=== PATIENT | male | born 1935 | race Caucasian/White ===

== ENCOUNTER 2022-02-25 10:10 | Outpatient (CLI) | payer MEDICARE | END 2022-02-25 10:11 | disposition home or self-care (01) | LOC: CSHULT 10:10 | PROVIDERS: ATTEND Family Medicine | DX: I73.9 Peripheral vascular disease, unspecified (principal) | CPT/HCPCS: 93923 ==

== ENCOUNTER 2025-02-06 10:41 | Inpatient (IN) | payer MEDICARE ==
[2025-02-06 11:24] LABS: Actual Bicarbonate (HCO3v) 18.9 mEq/L (22-28); Analyzer IN Cardio CS ER; Base Excess -4.7 mEq/L (-2 - +2); Calcium, Ionized (venous) 1.14 mmol/L (1.16-1.32); Chloride (VBG) 101 mmol/L (98-106); Critical Notified Whom: cocjef; Hematocrit-VBG 37 % (42.0-52.0); Hemoglobin (Hb) 12.6 g/dL (12.6-17.4); Potassium (VBG) 4.37 mmol/L (3.70-5.30); Puncture Site Other Site; RapidComm Collect By lab; Sodium 136 mmol/L (133-146)
[2025-02-06 11:26] LABS: #Basophils 0.04 10x3/uL (0.0-0.2); #Eosinophils 0.26 10x3/uL (0.0-0.5); #Monocytes 0.61 10x3/uL (0.0-1.1); #Neutrophils 4.76 10x3/uL (1.5-8.4); %Basophils 0.5 % (0.0-2.0); %Eosinophils 3.5 % (0.0-6.0); %Lymphocytes 23.7 % (18.0-47.0); %Monocytes 8.2 % (0.0-10.0); %Neutrophils 63.6 % (40.0-75.0); Hematocrit 35.7 % (38.8-50.0); Hemoglobin 11.4 g/dL (13.5-17.5); Mean Corpuscular Hemoglobin 28.1 pg (27.0-33.0); Mean Corpuscular Volume 87.9 fL (81.2-95.1); Platelet Count 388 10x3/uL (150-450); Red Blood Cell (RBC) Count 4.06 10x6/uL (4.32-5.72); White Blood Cell (WBC) Count 7.48 10x3/uL (3.5-10.5)
[2025-02-06 11:45] LABS: ALT (SGPT) 9 U/L (Less than 45); AST (SGOT) 12 U/L (11-34); Albumin 3.1 g/dL (3.1-4.5); Alkaline Phosphatase 93 U/L (40-110); Anion Gap 20 mmol/L (10-20); BUN (Urea Nitrogen) 34 mg/dL (8.4-25.7); Bilirubin, Total 0.4 mg/dL (0.3-1.2); Calc. Creatinine Clearance 0 mL/min (70-130); Calcium 8.7 mg/dL (7.8-10.44); Carbon Dioxide 16 mmol/L (23-31); Chloride 105 mmol/L (98-107); Globulin 3.1 g/dL (2.4-3.5); Lipase 74 U/L (8-78); Magnesium 2.1 mg/dL (1.6-2.6); Potassium 4.7 mmol/L (3.5-5.1); Sodium 136 mmol/L (136-145)
[2025-02-06 11:48] LABS: Glucose 507 mg/dL (83-110); Troponin I 0.097 ng/mL (< 0.028)
[2025-02-06] MEDS ORDERED: Cefepime 2 GM VIAL ONE (12:15)
[2025-02-06 13:04] LABS: Glucose, Urine (Dipstick) >=1000 mg/dL (Negative); Leukocyte 500 (Negative); Protein, Urine (Dipstick) 30 mg/dl (Neg-Trace); Specific Gravity, Urine 1.005 (1.005-1.030)
[2025-02-06] MEDS ORDERED: Dextrose 50% Abboject 50 ML SYRINGE SLOW IVP PRN (13:16)
[2025-02-06] MEDS ORDERED: Glucagon 1 MG/ML KIT IM PRN (13:16)
[2025-02-06] MEDS ORDERED: Acetaminophen 325 MG TAB PO PRN (13:16)
[2025-02-06 13:25] LABS: CAUTI Indications for Culture Alt mental st,lethar; WBC/HPF 21-50 HPF (0-3)
[2025-02-06 13:26] LABS: Bacteria/HPF 1+ HPF (None Seen)
[2025-02-06 13:27] LABS: Urine Culture Reflex Yes Yes
[2025-02-06] MEDS ORDERED: Ketorolac Tromethamine 30 MG (1 mL) VIAL IVP PRN (13:43)
[2025-02-06 14:37] LABS: Glucose 318 mg/dL (83-110)
[2025-02-06 14:46] LABS: Troponin I 0.082 ng/mL (< 0.028)
[2025-02-06 16:13] LABS: Troponin I 0.095 ng/mL (< 0.028)
[2025-02-06 21:43] VITALS: BMI 26.1
[2025-02-06] MEDS: cefTRIAXone\\ROCEPHIN 2 GM in Sodium Chloride 0.9% 100 ML IVPB SCH (22:01)
[2025-02-06] MEDS: Famotidine/PF 20 mg/2ml Vial SLOW IVP SCH (22:16)
[2025-02-06] MEDS: Famotidine 20 MG TAB PO SCH (22:16)
[2025-02-07 06:02] LABS: #Basophils 0.04 10x3/uL (0.0-0.2); #Eosinophils 0.33 10x3/uL (0.0-0.5); #Monocytes 0.62 10x3/uL (0.0-1.1); #Neutrophils 5.03 10x3/uL (1.5-8.4); %Basophils 0.5 % (0.0-2.0); %Eosinophils 4.3 % (0.0-6.0); %Lymphocytes 21.5 % (18.0-47.0); %Monocytes 8.0 % (0.0-10.0); %Neutrophils 64.9 % (40.0-75.0); Hematocrit 35.7 % (38.8-50.0); Hemoglobin 11.1 g/dL (13.5-17.5); Mean Corpuscular Hemoglobin 27.6 pg (27.0-33.0); Mean Corpuscular Volume 88.8 fL (81.2-95.1); Platelet Count 366 10x3/uL (150-450); Red Blood Cell (RBC) Count 4.02 10x6/uL (4.32-5.72); White Blood Cell (WBC) Count 7.75 10x3/uL (3.5-10.5)
[2025-02-07 06:17] LABS: Anion Gap 12 mmol/L (10-20); BUN (Urea Nitrogen) 29 mg/dL (8.4-25.7); Calc. Creatinine Clearance 32 mL/min (70-130); Calcium 8.6 mg/dL (7.8-10.44); Carbon Dioxide 22 mmol/L (23-31); Chloride 115 mmol/L (98-107); Glucose 171 mg/dL (83-110); Potassium 4.0 mmol/L (3.5-5.1); Sodium 145 mmol/L (136-145)
[2025-02-07] MEDS: Aspirin Chewable 81 MG TAB PO SCH (08:55)
[2025-02-07] MEDS: Finasteride 5 MG TAB PO SCH (08:56)
[2025-02-07] MEDS: Enoxaparin 30 MG (0.3 mL) SYRINGE SC SCH (08:56)
[2025-02-07] MEDS: Famotidine 20 MG TAB PO SCH (20:28)
[2025-02-07] MEDS: Melatonin 3 MG TAB PO PRN (20:28)
[2025-02-08 08:00] LABS: #Basophils 0.04 10x3/uL (0.0-0.2); #Eosinophils 0.42 10x3/uL (0.0-0.5); #Monocytes 0.60 10x3/uL (0.0-1.1); #Neutrophils 4.66 10x3/uL (1.5-8.4); %Basophils 0.5 % (0.0-2.0); %Eosinophils 5.6 % (0.0-6.0); %Lymphocytes 23.8 % (18.0-47.0); %Monocytes 7.9 % (0.0-10.0); %Neutrophils 61.7 % (40.0-75.0); Hematocrit 35.6 % (38.8-50.0); Hemoglobin 11.0 g/dL (13.5-17.5); Mean Corpuscular Hemoglobin 27.9 pg (27.0-33.0); Mean Corpuscular Volume 90.4 fL (81.2-95.1); Platelet Count 347 10x3/uL (150-450); Red Blood Cell (RBC) Count 3.94 10x6/uL (4.32-5.72); White Blood Cell (WBC) Count 7.56 10x3/uL (3.5-10.5)
[2025-02-08 08:46] LABS: Albumin 2.7 g/dL (3.1-4.5); Anion Gap 10 mmol/L (10-20); BUN (Urea Nitrogen) 24 mg/dL (8.4-25.7); BUN/Creatinine Ratio 15.89; Calc. Creatinine Clearance 32 mL/min (70-130); Calcium 8.6 mg/dL (7.8-10.44); Carbon Dioxide 20 mmol/L (23-31); Chloride 119 mmol/L (98-107); Glucose 185 mg/dL (83-110); Potassium 4.2 mmol/L (3.5-5.1); Sodium 145 mmol/L (136-145)
[2025-02-08 12:49] VITALS: BP 145/74; TEMP 98.1
== END 2025-02-08 13:34 | disposition home or self-care (01) | DRG 637 ==
LOC: CSHERS 10:42 → CSHERHOLD 13:09 → CSHTELE 21:34
PROVIDERS: ADMIT Student in an Organized Health Care Education/Training Program; ATTEND Student in an Organized Health Care Education/Training Program
DX: E11.65 Type 2 diabetes mellitus with hyperglycemia (principal); A41.9 Sepsis, unspecified organism; N17.9 Acute kidney failure, unspecified; N39.0 Urinary tract infection, site not specified; I10 Essential (primary) hypertension; E78.5 Hyperlipidemia, unspecified; N40.0 Benign prostatic hyperplasia without lower urinary tract symptoms; Z79.899 Other long term (current) drug therapy; Z79.4 Long term (current) use of insulin; Z79.84 Long term (current) use of oral hypoglycemic drugs; Z95.0 Presence of cardiac pacemaker
CPT/HCPCS: 36415; 36416; 71045; 80048; 80053; 80069; 81001; 82010; 82805; 83036; 83605; 83690; 83735; 84100; 84443; 84484; 85025; 87040; 87077; 87086; 93005; 94760; 96374; J0692; J0696; J1650; J1815; J7030

== ENCOUNTER 2025-02-08 18:07 | Emergency (ER) | payer MEDICARE ==
[2025-02-08 18:59] LABS: #Basophils Less than 0.03 10x3/uL (0.0-0.2); #Eosinophils 0.31 10x3/uL (0.0-0.5); #Monocytes 0.62 10x3/uL (0.0-1.1); #Neutrophils 5.36 10x3/uL (1.5-8.4); %Basophils 0.3 % (0.0-2.0); %Eosinophils 4.1 % (0.0-6.0); %Lymphocytes 16.5 % (18.0-47.0); %Monocytes 8.1 % (0.0-10.0); %Neutrophils 70.2 % (40.0-75.0); Hematocrit 34.8 % (38.8-50.0); Hemoglobin 11.0 g/dL (13.5-17.5); Mean Corpuscular Hemoglobin 28.6 pg (27.0-33.0); Mean Corpuscular Volume 90.4 fL (81.2-95.1); Platelet Count 348 10x3/uL (150-450); Red Blood Cell (RBC) Count 3.85 10x6/uL (4.32-5.72); White Blood Cell (WBC) Count 7.63 10x3/uL (3.5-10.5)
[2025-02-08 19:14] LABS: ALT (SGPT) 8 U/L (Less than 45); AST (SGOT) 16 U/L (11-34); Albumin 3.0 g/dL (3.1-4.5); Alkaline Phosphatase 87 U/L (40-110); Anion Gap 10 mmol/L (10-20); BUN (Urea Nitrogen) 22 mg/dL (8.4-25.7); Bilirubin, Total 0.3 mg/dL (0.3-1.2); Calc. Creatinine Clearance 0 mL/min (70-130); Calcium 8.9 mg/dL (7.8-10.44); Carbon Dioxide 20 mmol/L (23-31); Chloride 115 mmol/L (98-107); Globulin 3.2 g/dL (2.4-3.5); Glucose 292 mg/dL (83-110); Potassium 4.2 mmol/L (3.5-5.1); Sodium 141 mmol/L (136-145)
[2025-02-08] MEDS ORDERED: cefTRIAXone (ROCEPHIN) 1 GM VIAL ONE (21:09)
== END 2025-02-08 21:39 | disposition home or self-care (01) ==
LOC: CSHERS 18:07
DX: E11.65 Type 2 diabetes mellitus with hyperglycemia (principal); N39.0 Urinary tract infection, site not specified; I10 Essential (primary) hypertension
CPT/HCPCS: 80053; 85025; J0696; J1815; 36415; 96374